=== PATIENT | female | born 1995 | race African-American/Black ===

== ENCOUNTER 2016-10-15 20:17 | Emergency (ER) | payer SELFPAY ==
[~2016-10-15] VITALS: Ht 152.4 cm; Wt 60.0 kg
[~2016-10-15 20:17] MED LIST: BUTA1CAP PO
[2016-10-15 20:19] VITALS: BP 135/68; PULSE 83; RESP 16; TEMP 98.8; O2SAT 98
--- NOTE | 2016-10-15 21:59 | PD ---
HPI Chief Complaint: ENT Complaint Time Seen by Provider: 21:50 Travel History International Travel<30 days: No Contact w/Intl Traveler<30days: No Traveled to known affect area: No History of Present Illness HPI 21-year-old female presents for evaluation of a sore throat. Symptoms started this morning. It hurts to swallow. She has had occasional subjective fevers as well. She noticed "white spots" in the back of her throat when she looked in the mirror this morning. Denies cough or congestion, rash. She reports that she recently flew to [place] and returned a few days ago. No significant past medical history. She has no other complaints. PFSH Past Medical History Medical History: Denies Significant Hx Diabetes: No Diminished Hearing: No Immunizations Current: Yes Tetanus Vaccination: < 5 Years Influenza Vaccination: Yes ?: Not LMP: LAST WEEK : 0 Past Surgical History Surgical History: No Previous Surgery Social History Alcohol Use: Yes (OCCASIONAL RARE) Tobacco Use: No Substance Use: Yes (MARIJUANA OCCASIONALLY) Allergies-Medications (Allergen,Severity, Reaction): Coded Allergies: Zovirax (Verified Allergy, Severe, Seizures, 10/15/16) Reported Meds & Prescriptions Reported Meds & Active Scripts Active Fioricet (Yribphqxfb-Ynfbhmuiysfsb-Mzkysypn) 50-300-40 Mg Cap 1 Cap PO Q4H PRN Review of Systems Except as stated in HPI: all other systems reviewed are Neg Physical Exam Narrative GENERAL: Well-developed well-nourished female in no acute distress SKIN: Warm and dry. HEAD: Atraumatic. Normocephalic. EYES: Pupils equal and round. No scleral icterus. No injection or drainage. ENT: No nasal bleeding or discharge. Mucous membranes pink and moist. There is mild oropharyngeal erythema, slight exudate formation. Uvula midline with no mass effect. NECK: Trachea midline. No JVD. Mild tender anterior cervical lymphadenopathy. CARDIOVASCULAR: Regular rate and rhythm. No murmur appreciated. RESPIRATORY: No accessory muscle use. Clear to auscultation. Breath sounds equal bilaterally. Data Data Last Documented VS Vital Signs Date Time Temp Pulse Resp B/P Pulse Ox O2 Delivery O2 Flow Rate FiO2 10/15/16 20:19 98.8 83 16 135/68 98 Room Air Orders Group A Rapid Strep Screen (10/15/16 21:56) Strep Culture (Group A) (10/15/16 22:25) [facility] Medical Decision Making Medical Screen Exam Complete: Yes Emergency Medical Condition: Yes Medical Record Reviewed: Yes Differential Diagnosis Pharyngitis, tonsillitis, peritonsillar abscess, infectious mononucleosis, herpangina, epiglottitis, retropharyngeal abscess Narrative Course 21-year-old female presents with one-day history of sore throat. Physical examination reveals mild oropharyngeal erythema and slight exudate formation. She is afebrile, not tachycardic. Plan is for rapid strep screen. Rapid strep screen is negative. The patient is stable for discharge. Diagnosis Primary Impression: Pharyngitis Qualified Code: J02.9 - Pharyngitis, unspecified etiology Additional Instructions: Take mmtj-flh-ecttnbn Tylenol and Motrin for discomfort. Stay well hydrated. Follow-up with primary care physician as needed. Med/Other Pt SpecificInfo: No Change to Meds Disposition: 01 DISCHARGE HOME Condition: Stable Arcadio Da Silva Oct 15, 2016 21:58
== END 2016-10-15 23:34 | disposition home or self-care (01) ==
LOC: NEPB 20:17
DX: J02.9 Acute pharyngitis, unspecified (principal)
CPT/HCPCS: 87081; 87880; 99283

== ENCOUNTER 2017-01-25 05:54 | Emergency (ER) | payer SELFPAY ==
[2017-01-25 05:55] VITALS: BP 118/64; PULSE 84; RESP 16; TEMP 98; O2SAT 99
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
[2017-01-25] MEDS ORDERED: KETOROLAC TROMETHAMINE 60 MG/2 ML (IM) VIAL IM ONE (06:30)
[2017-01-25] MEDS ORDERED: ORPHENADRINE INJ 60 MG/2 ML AMP IM ONE (06:30)
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
[2017-01-25] MEDS ORDERED: CYCL5TAB PO (07:04)
[2017-01-25] MEDS ORDERED: IBUP800T23 PO (07:04)
--- NOTE | 2017-01-25 07:04 | PD ---
Physical Exam Date Seen by Provider: January 25, 2017 Time Seen by Provider: 07:01 Narrative I was asked to disposition this patient by previous provider. Brief history, patient feel to ground on back hurting T spine. Xray was pending. Results are negative. Data Data Last Documented VS Vital Signs Date Time Temp Pulse Resp B/P Pulse Ox O2 Delivery O2 Flow Rate FiO2 01/25/17 05:55 98.0 84 16 118/64 99 Room Air Orders Ketorolac Inj (Toradol Inj) (01/25/17 06:30) Orphenadrine Inj (Norflex Inj) (01/25/17 06:30) Spine, Thoracic-Ap/Lat/Sw(3vw) (01/25/17 ) MDM Medical Record Reviewed: Yes Supervised Visit with RONAN: No Differential Diagnosis fall, back pain, muscle strain Narrative Course Discussed xray findings with patient. Discussed sending home with a course of muscle relaxers. Advised f/u with PCP. Diagnosis Primary Impression: Muscle strain Additional Impression: Fall Qualified Code: W19.XXXA - Fall, initial encounter Patient Instructions: General Instructions Additional Instruction: Please follow up with your primary care provider. Take medications as needed. Muscle relaxers can cause drowsiness. Please do not drive, swim, or operate heavy machinery while using these medications. You can try heat to your back for additional relief. Med/Other Pt SpecificInfo: Prescription(s) given Scripts Ibuprofen 800 Mg [id number] Mg PO TID #21 TAB Prov:Sunita Dyer MD 01/25/17 Cyclobenzaprine (Flexeril)5 Mg Tab5 Mg PO TID #21 TAB Prov:Sunita Dyer MD 01/25/17 Disposition: 01 DISCHARGE HOME Condition: Stable Larissa Armendariz January 25, 2017 07:04
== END 2017-01-25 07:18 | disposition home or self-care (01) ==
LOC: NEPD 05:54
DX: S29.012A Strain of muscle and tendon of back wall of thorax, initial encounter (principal); X50.0XXA Overexertion from strenuous movement or load, initial encounter; X50.9XXA Other and unspecified overexertion or strenuous movements or postures, initial encounter; Y93.39 Activity, other involving climbing, rappelling and jumping off; Y92.89 Other specified places as the place of occurrence of the external cause; Y99.8 Other external cause status
CPT/HCPCS: 72072; 96372; 99283; J1885; J2360

== ENCOUNTER 2017-03-18 02:24 | Emergency (ER) | payer SELFPAY ==
[~2017-03-18] VITALS: Ht 152.4 cm; Wt 59.0 kg
[~2017-03-18 02:24] MED LIST changes: +CYCL5TAB PO; +IBUP800T23 PO
[2017-03-18 02:26] VITALS: BP 127/74; PULSE 84; RESP 15; TEMP 99.4; O2SAT 98
[2017-03-18] MEDS ORDERED: DICL75TA PO (02:40)
[2017-03-18] MEDS ORDERED: CYCL1TAB29 PO (02:40)
--- NOTE | 2017-03-18 02:40 | PD ---
HPI Chief Complaint: Fall Time Seen by Provider: 02:37 Travel History International Travel<30 days: No Contact w/Intl Traveler<30days: No Traveled to known affect area: No History of Present Illness HPI 22-year-old white female presents to emergency Department with complaints of coccyx pain after a slip and fall at home prior to arrival. She states that she had slipped on the wet floor in the kitchen onto her buttocks. Pain is worse with movement and palpation. Some relief from remaining still. Pain is moderate. No injury to her head, neck or mid back. She states that she does not have a significant lower lumbar tenderness but localizes to her tailbone. No bowel or bladder changes. No numbness, tingling or weakness. PFSH Past Medical History Medical History: Denies Significant Hx Diabetes: No Diminished Hearing: No Immunizations Current: Yes Tetanus Vaccination: < 5 Years ?: Not LMP: 03/14/17 : 0 Past Surgical History Surgical History: No Previous Surgery Social History Alcohol Use: Yes (OCCASIONAL RARE) Tobacco Use: No Substance Use: Yes (MARIJUANA OCCASIONALLY) Allergies-Medications (Allergen,Severity, Reaction): Coded Allergies: Zovirax (Verified Allergy, Severe, Seizures, 03/18/17) Reported Meds & Prescriptions Reported Meds & Active Scripts Active Flexeril (Cyclobenzaprine HCl) 10 Mg Tab 10 Mg PO TID Diclofenac Sodium DR (Diclofenac Sodium) 75 Mg Tabdr 75 Mg PO BID Review of Systems Except as stated in HPI: all other systems reviewed are Neg Physical Exam Narrative GENERAL: Well-developed, well-nourished in no apparent distress. Nontoxic appearing. HEAD: Normocephalic, atraumatic. EYES: Pupils equal round and reactive. Extraocular motions intact. No scleral icterus. No injection or drainage. ENT: Nose clear. Throat without erythema, tonsillar hypertrophy or exudate. Uvula midline. Airway patent. NECK: Trachea midline. Supple, nontender, moves head freely. No central bony tenderness or spasm. CARDIOVASCULAR: Regular rate and rhythm without murmurs, gallops, or rubs. RESPIRATORY: Clear to auscultation. Breath sounds equal bilaterally. No wheezes , rales, or rhonchi. GASTROINTESTINAL: Abdomen soft, non-tender, nondistended. No hepato-splenomegaly , or palpable masses. No guarding. EXTREMITIES: No clubbing, cyanosis, or edema. No joint tenderness. BACK: Nontender without deformity. No flank tenderness. Patient has tenderness in the coccyx. No lumbar tenderness. No saddle anesthesia. NEUROLOGICAL: Awake, alert and oriented x 3 .Cranial nerves grossly intact. Motor and sensory grossly within normal limits. Normal speech. Data Data Last Documented VS Vital Signs Date Time Temp Pulse Resp B/P Pulse Ox O2 Delivery O2 Flow Rate FiO2 03/18/17 02:26 99.4 84 15 127/74 98 Room Air Orders Sacrum And Coccyx (03/18/17 ) Acetamin-Hydrocod 325-5 Mg (Halbur 5-325 (03/18/17 02:45) MDM Medical Decision Making Medical Screen Exam Complete: Yes Emergency Medical Condition: Yes Medical Record Reviewed: Yes Interpretation(s) Sacrum: Negative for acute fracture Differential Diagnosis MDM: High Differential diagnoses: Fracture, sprain, strain, dislocation, contusion, neurovascular injury Narrative Course Patient's given Lortab 5 a grams by mouth for pain. X-ray was negative for fracture. Diagnosis Primary Impression: Coccyx contusion Qualified Code: S30.0XXA - Coccyx contusion, initial encounter Patient Instructions: Narcotic given in the ED, General Instructions Departure Forms: Tests/Procedures, Work Release Special Instructions: No work 2 days. Additional Instructions: Rest. Ice for the next 3 days followed by heat . Flexeril and Voltaren. Follow-up with a primary care doctor in one week. Return to the ER for emergencies. Med/Other Pt SpecificInfo: Prescription(s) given Scripts Cyclobenzaprine (Flexeril)10 Mg Tab10 Mg PO TID #21 TAB Prov:Suzy Mccarty DO 03/18/[address] 75 Mg Tabdr75 Mg PO BID #20 TAB Prov:Suzy Mccarty DO 03/18/17 Disposition: 01 DISCHARGE HOME Condition: Stable Boyd Chen Mar 18, 2017 02:40
[2017-03-18] MEDS ORDERED: ACETAMINOPHEN/HYDROcodone 325 MG/5 MG TAB PO ONE (02:45)
--- NOTE | 2017-03-18 03:17 | RADRPT ---
EXAM DATE/TIME: 03/18/2017 02:51 [facility] COMPARISON: No previous studies available for comparison. INDICATIONS : Tailbone pain post fall today MEDICAL HISTORY : None. SURGICAL HISTORY : None. ENCOUNTER: Initial ACUITY: 1 day PAIN SCORE: 8/10 LOCATION: Bilateral buttock FINDINGS: Two-view examination of the sacrum and coccyx demonstrates no evidence of fracture or malalignment. The sacral ala and foramina appear symmetric and intact. The coccyx appears unremarkable. The preve rtebral soft tissues are within normal limits. CONCLUSION: Negative exam of the sacrum and coccyx. Samm Palmer MD on March 18, 2017 at 3:15 Board Certified Radiologist. This report was verified electronically.
== END 2017-03-18 03:17 | disposition home or self-care (01) ==
LOC: NEPD 02:24
DX: S30.0XXA Contusion of lower back and pelvis, initial encounter (principal); Z79.899 Other long term (current) drug therapy; Z88.8 Allergy status to other drugs, medicaments and biological substances; W01.0XXA Fall on same level from slipping, tripping and stumbling without subsequent striking against object, initial encounter; Y92.009 Unspecified place in unspecified non-institutional (private) residence as the place of occurrence of the external cause
CPT/HCPCS: 72220; 99284

== ENCOUNTER 2017-06-09 20:46 | Emergency (ER) | payer SELFPAY ==
[~2017-06-09 20:46] MED LIST changes: -BUTA1CAP PO; +CYCL1TAB29 PO; -CYCL5TAB PO; +DICL75TA PO; -IBUP800T23 PO
[2017-06-09 20:47] VITALS: BP 113/61; PULSE 101; RESP 15; TEMP 99.5; O2SAT 99
--- NOTE | 2017-06-09 21:28 | PD ---
Physical Exam Date Seen by Provider: Jun 09, 2017 Time Seen by Provider: 21:26 Narrative 22-year-old black female presents to the department for evaluation of facial laceration. She states that she was leaning under a cabinet when she turned her head and struck it causing a laceration. No syncope. No nausea vomiting. Not up-to-date with immunizations. Patient reports her pain to be a 6/10. Data Data Last Documented VS Vital Signs Date Time Temp Pulse Resp B/P (MAP) Pulse Ox O2 Delivery O2 Flow Rate FiO2 06/09/17 20:47 99.5 101 15 113/61 (78) 99 Room Air [facility] Medical Record Reviewed: No Supervised Visit with RONAN: Boyd Luu Jun 09, 2017 21:27
--- NOTE | 2017-06-09 21:54 | PD ---
HPI Chief Complaint: Laceration/Skin Injury Time Seen by Provider: 21:53 Travel History International Travel<30 days: No Contact w/Intl Traveler<30days: No Traveled to known affect area: No History of Present Illness HPI 22 year-old female presents versus [facility] for evaluation of laceration above her left eyebrow. Patient states that she is cleaning the bathroom when she bent over, striking her head on the door. She sustained a laceration. Did not lose consciousness. She reports mild pain at the site. Uncertain of tetanus status. He has no other symptoms to report. [facility], [facility] Past Medical History Medical History: Denies Significant Hx Diabetes: No Diminished Hearing: No Immunizations Current: Yes ?: Not LMP: 05/17/17 : 0 Social History Alcohol Use: Yes (OCCASIONAL RARE) Tobacco Use: No Substance Use: Yes (MARIJUANA OCCASIONALLY) Allergies-Medications (Allergen,Severity, Reaction): Coded Allergies: acyclovir (Unverified Allergy, Severe, Seizures, 05/05/17) Reported Meds & Prescriptions Reported Meds & Active Scripts Active Keflex (Cephalexin) 500 Mg Cap 500 Mg PO Q6H 5 Days Flexeril (Cyclobenzaprine HCl) 10 Mg Tab 10 Mg PO TID Diclofenac Sodium DR (Diclofenac Sodium) 75 Mg Tabdr 75 Mg PO BID Review of Systems Except as stated in HPI: all other systems reviewed are Neg Physical Exam Narrative GENERAL: Well-nourished female patient, in no acute distress SKIN: Focused skin assessment warm/dry. 1-1/2 cm laceration above the left eyebrow. We'll approximated. Bleeding is controlled. HEAD: Atraumatic. Normocephalic. EYES: Pupils equal and round. No scleral icterus. No injection or drainage. EOMI. ENT: No nasal bleeding or discharge. Mucous membranes pink and moist. NECK: Trachea midline. No JVD. CARDIOVASCULAR: Regular rate and rhythm. No murmur appreciated. RESPIRATORY: No accessory muscle use. Clear to auscultation. Breath sounds equal bilaterally. GASTROINTESTINAL: Abdomen soft, non-tender, nondistended. Hepatic and splenic margins not palpable. MUSCULOSKELETAL: No obvious deformities. No clubbing. No cyanosis. No edema. NEUROLOGICAL: Awake and alert. No obvious cranial nerve deficits. Motor grossly within normal limits. Normal speech. PSYCHIATRIC: Appropriate mood and affect; insight and judgment normal. Data Data Last Documented VS Vital Signs Date Time Temp Pulse Resp B/P (MAP) Pulse Ox O2 Delivery O2 Flow Rate FiO2 06/09/17 22:25 06/09/17 20:47 99.5 101 15 99 Room Air Orders Orders Tetanus/Diphtheria Tox Adult (Tetanus/Di (06/09/17 22:15) MDM Medical Decision Making Medical Screen Exam Complete: Yes Emergency Medical Condition: Yes Medical Record Reviewed: Yes Differential Diagnosis Laceration superficial versus deep versus abrasion versus avulsion Narrative Course 22 year-old female presents to emergency department for evaluation a laceration above the left eyebrow. This is a superficial laceration. It is cleansed and approximated using Dermabond skin adhesive. It is reinforced with Steri- Strips. Patient is counseled on care and agrees to return immediately with any acute worsening of symptoms. Procedures Procedure Narrative LACERATION LOCATION: Left eyebrow LENGTH: 1.5 centimeters NUMBER OF STITCHES/ADRIÁN: Robotic skin adhesive and Steri-Strips. REPAIR: The area of the laceration was prepped with Betadine and sterilely draped. . The wound was copiously irrigated and explored without evidence of foreign body, tendon injury or neurovascular injury. The wound was closed using Steri-Strips and Dermabond skin adhesive. This was a single layer repair. A sterile dressing was applied. The patient was advised to keep the dressing clean and dry. Patient tolerated the procedure well. Diagnosis Primary Impression: Laceration of left eyebrow Qualified Codes: S01.112A - Laceration without foreign body of left eyelid and periocular area, initial encounter Referrals: Primary Care Physician Patient Instructions: General Instructions, Skin Adhesive Care (ED) Additional Instructions: Keep the area clean and dry Do not pick at the area Do not apply ointment Follow-up with her primary care provider Tylenol or ibuprofen as directed on package as needed for pain Return immediately with any acute worsening of symptoms Med/Other Pt SpecificInfo: Prescription(s) given Scripts Cephalexin (Keflex) 500 Mg Cap 500 MG PO Q6H for Infection for 5 Days, #20 CAP 0 Refills Prov: Leeanne Breaux 06/09/17 Disposition: 01 DISCHARGE HOME Condition: Stable Leeanne Breaux Jun 09, 2017 21:54
[2017-06-09] MEDS ORDERED: TETANUS/DIPHTHERIA TOXOID ADULT 0.5 ML VIAL IM ONE (22:15)
[2017-06-09] MEDS ORDERED: CEPH-460 PO (22:16)
== END 2017-06-09 22:30 | disposition home or self-care (01) ==
LOC: NEPK 20:46
DX: S01.112A Laceration without foreign body of left eyelid and periocular area, initial encounter (principal); W22.8XXA Striking against or struck by other objects, initial encounter; Y93.E9 Activity, other interior property and clothing maintenance; Z23 Encounter for immunization
CPT/HCPCS: 12011; 90471; 90714

== ENCOUNTER 2018-01-08 23:09 | Emergency (ER) | payer SELFPAY ==
[~2018-01-08] VITALS: Ht 152.4 cm; Wt 57.3 kg
[~2018-01-08 23:09] MED LIST changes: +CEPH-460 PO; +CYCL10TA PO; -CYCL1TAB29 PO
[2018-01-08 23:23] VITALS: BP 129/56; PULSE 103; RESP 18; TEMP 99.7; O2SAT 100
[2018-01-09] MEDS ORDERED: DICY10 PO (00:39)
[2018-01-09] MEDS ORDERED: ZOFR4TAB3 SL (00:39)
--- NOTE | 2018-01-09 00:41 | PD ---
HPI Chief Complaint: GI Complaint Time Seen by Provider: 00:21 Travel History International Travel<30 days: No Contact w/Intl Traveler<30days: No Traveled to known affect area: No History of Present Illness HPI 22-year-old female complains of abdominal cramping with nausea vomiting and diarrhea. Patient states the symptoms started this morning. Patient denies any headache. Patient denies any chest pain or shortness of breath. Patient states abdominal pain and cramping pain intermittent pain diffuse over the abdomen. Patient denies any pain radiation. Patient denies any fever chills. Patient denies any dysuria frequency. Patient denies any vaginal discharge or bleeding. PFSH Past Medical History Medical History: Denies Significant Hx Diabetes: No Diminished Hearing: No Immunizations Current: Yes Influenza Vaccination: No ?: Not LMP: 01/01/2018 : 0 Past Surgical History Surgical History: No Previous Surgery Social History Alcohol Use: Yes (OCCASIONAL ) Tobacco Use: No Substance Use: Yes (MARIJUANA OCCASIONALLY) Allergies-Medications (Allergen,Severity, Reaction): Coded Allergies: acyclovir (Unverified Allergy, Severe, Seizures, 01/08/18) Reported Meds & Prescriptions Reported Meds & Active Scripts Active Keflex (Cephalexin) 500 Mg Cap 500 Mg PO Q6H 5 Days Flexeril (Cyclobenzaprine HCl) 10 Mg Tab 10 Mg PO TID Diclofenac Sodium DR (Diclofenac Sodium) 75 Mg Tabdr 75 Mg PO BID Review of Systems General / Constitutional: No: Fever Eyes: No: Visual changes HENT: No: Headaches Cardiovascular: No: Chest Pain or Discomfort Respiratory: No: Shortness of Breath Gastrointestinal: Positive: Nausea, Vomiting, Diarrhea, Abdominal Pain Genitourinary: No: Dysuria Musculoskeletal: No: Pain Skin: No Rash Neurologic: No: Weakness Psychiatric: No: Depression Endocrine: No: Polydipsia Hematologic/Lymphatic: No: Easy Bruising Physical Exam Narrative GENERAL: Well-nourished, well-developed patient. SKIN: Focused skin assessment warm/dry. HEAD: Normocephalic. EYES: No scleral icterus. No injection or drainage. NECK: Supple, trachea midline. No JVD or lymphadenopathy. CARDIOVASCULAR: Regular rate and rhythm without murmurs, gallops, or rubs. RESPIRATORY: Breath sounds equal bilaterally. No accessory muscle use. GASTROINTESTINAL: Abdomen soft, nondistended. Patient has mild diffuse tenderness over the abdomen. No rebound tenderness. No mass. MUSCULOSKELETAL: No cyanosis, or edema. BACK: Nontender without obvious deformity. No CVA tenderness. Data Data Last Documented VS Vital Signs Date Time Temp Pulse Resp B/P (MAP) Pulse Ox O2 Delivery O2 Flow Rate FiO2 01/08/18 23:23 99.7 103 18 129/56 (80) 100 MDM Medical Decision Making Medical Screen Exam Complete: Yes Emergency Medical Condition: Yes Differential Diagnosis Differential diagnosis including gastroenteritis, gastritis, PUD, pancreatitis, cholecystitis, colitis, UTI, pyelonephritis, nephrolithiasis. Narrative Course 22-year-old female with abdominal pain, nausea vomiting diarrhea. Zofran 4 mg ODT. Bentyl 20 mg IM. Diagnosis Primary Impression: Gastroenteritis Patient Instructions: General Instructions Additional Instructions: Clear fluid for 24 hours and advance as tolerated. Take medication as needed. Follow-up with personal physician. Return if persistent problem or worse. Over -the-counter Imodium for diarrhea. Med/Other Pt SpecificInfo: Prescription(s) given Scripts Dicyclomine (Bentyl) 10 Mg Cap 10 MG PO TID Y for Bowel Management, #15 CAP 0 Refills Prov: Wilfredo Handy MD 01/09/18 Ondansetron Odt (Zofran Odt) 4 Mg Tab 4 MG SL Q6HR Y for Nausea/Vomiting, #10 TAB 0 Refills Prov: Wilfredo Handy MD 01/09/18 Disposition: 01 DISCHARGE HOME Condition: Stable Wilfredo Handy MD Jan 09, 2018 00:41
[2018-01-09] MEDS ORDERED: ONDANSETRON ODT 4 MG TAB PO ONE (00:45)
[2018-01-09] MEDS ORDERED: DIPHENOXYLATE/ATROPINE 2.5 MG/0.025 MG TAB PO ONE (00:45)
[2018-01-09] MEDS ORDERED: DICYCLOMINE HCL 20 MG/2 ML VIAL IM ONE (00:45)
== END 2018-01-09 01:19 | disposition home or self-care (01) ==
LOC: NEPC 23:09
DX: K52.9 Noninfective gastroenteritis and colitis, unspecified (principal); Z88.8 Allergy status to other drugs, medicaments and biological substances; Z79.899 Other long term (current) drug therapy
CPT/HCPCS: 96372; 99283; J0500